=== PATIENT | female | born 1935 | race Caucasian/White ===

== ENCOUNTER → 2016-08-14 | Outpatient (REF) | payer OTHER ==
[2016-08-14 18:12] LABS: ALBUMIN 3.8 GM/DL (3.2-5.2); ALBUMIN/GLOBULIN RATIO 0.97 (1.00-1.93); ALKALINE PHOSPHATASE 93 U/L (45-117); ALT/SGPT 10 U/L (12-78); ANION GAP 9 MEQ/L (8-16); AST/SGOT 7 U/L (15-37); BILIRUBIN,TOTAL 0.3 MG/DL (0.2-1.0); BLOOD UREA NITROGEN 9 MG/DL (7-18); CARBON DIOXIDE LEVEL 29 MEQ/L (21-32); CHLORIDE LEVEL 101 MEQ/L (98-107); CREATININE FOR GFR 0.83 MG/DL (0.55-1.02); GLOMERULAR FILTRATION RATE > 60.0 (>39); GLUCOSE, FASTING 113 MG/DL (83-110); SODIUM LEVEL 139 MEQ/L (136-145); TOTAL PROTEIN 7.7 GM/DL (6.4-8.2)
== END ==
LOC: M SFHCCLAY 10:26
PROVIDERS: ATTEND Family Medicine
DX: I11.9 Hypertensive heart disease without heart failure (principal)
CPT/HCPCS: 36415; 80053; G0463

== ENCOUNTER → 2017-08-20 | Outpatient (REF) | payer OTHER ==
[2017-08-20 17:25] LABS: ALBUMIN 3.9 GM/DL (3.2-5.2); ALKALINE PHOSPHATASE 84 U/L (45-117); ALT/SGPT 13 U/L (12-78); ANION GAP 5 MEQ/L (8-16); AST/SGOT 13 U/L (7-37); BILIRUBIN,TOTAL 0.5 MG/DL (0.2-1.0); BLOOD UREA NITROGEN 10 MG/DL (7-18); CALCIUM LEVEL 9.4 MG/DL (8.8-10.2); CARBON DIOXIDE LEVEL 31 MEQ/L (21-32); CHLORIDE LEVEL 102 MEQ/L (98-107); GLOMERULAR FILTRATION RATE > 60.0 (>32); GLUCOSE, FASTING 97 MG/DL (70-100); POTASSIUM SERUM 4.3 MEQ/L (3.5-5.1); SODIUM LEVEL 138 MEQ/L (136-145); TOTAL PROTEIN 7.8 GM/DL (6.4-8.2)
== END ==
LOC: M SFHCCLAY 11:12
DX: I11.9 Hypertensive heart disease without heart failure (principal)
CPT/HCPCS: 80053

== ENCOUNTER → 2018-12-25 | Outpatient (REF) | payer MEDICARE ==
[2018-12-25 18:27] LABS: ALBUMIN 3.8 GM/DL (3.2-5.2); ALT/SGPT 14 U/L (12-78); BILIRUBIN,TOTAL 0.5 MG/DL (0.2-1.0); BLOOD UREA NITROGEN 9 MG/DL (7-18); CARBON DIOXIDE LEVEL 27 MEQ/L (21-32); CHLORIDE LEVEL 104 MEQ/L (98-107); CREATININE FOR GFR 0.76 MG/DL (0.55-1.30); GLOMERULAR FILTRATION RATE > 60.0 (>32); GLUCOSE, FASTING 95 MG/DL (70-100); POTASSIUM SERUM 3.9 MEQ/L (3.5-5.1); SODIUM LEVEL 139 MEQ/L (136-145); TOTAL PROTEIN 7.8 GM/DL (6.4-8.2)
== END ==
LOC: M SFHCCLAY 09:44
PROVIDERS: ATTEND Family Medicine
DX: I11.9 Hypertensive heart disease without heart failure (principal)

== ENCOUNTER → 2020-08-14 | Outpatient (REF) | payer MEDICARE ==
[2020-08-14 11:21] LABS: BASO # 0.1 10^3/uL (0.0-0.2); BASO % 1.6 % (0.0-1.0); EOS # 0.3 10^3/uL (0.0-0.5); EOS % 3.4 % (0.0-3.0); HEMATOCRIT 42.7 % (36.0-47.0); LYMPH # 2.2 10^3/uL (1.5-5.0); LYMPH % 29.5 % (24.0-44.0); MEAN CORPUSCULAR HEMOGLOBIN 24.8 pg (27.0-33.0); MEAN CORPUSCULAR HGB CONC 30.4 g/dl (32.0-36.5); MEAN CORPUSCULAR VOLUME 81.3 fl (80.0-96.0); MONO # 0.6 10^3/uL (0.0-0.8); MONO % 8.2 % (2.0-8.0); NEUTROPHILS # 4.2 10^3/uL (1.5-8.5); PLATELET COUNT, AUTOMATED 276 10^3/uL (150-450); RED BLOOD COUNT 5.25 10^6/uL (4.00-5.40); WHITE BLOOD COUNT 7.4 10^3/uL (4.0-10.0)
[2020-08-14 12:17] LABS: ALT/SGPT 12 U/L (12-78); BILIRUBIN,TOTAL 0.4 MG/DL (0.2-1.0); BLOOD UREA NITROGEN 16 MG/DL (7-18); CALCIUM LEVEL 9.6 MG/DL (8.8-10.2); CARBON DIOXIDE LEVEL 32 MEQ/L (21-32); CHLORIDE LEVEL 102 MEQ/L (98-107); CHOLESTEROL LEVEL 210 MG/DL (<200); CREATININE FOR GFR 0.85 MG/DL (0.55-1.30); FERRITIN 104 NG/ML (8-252); FREE T4 1.23 NG/DL (0.76-1.46); GLOMERULAR FILTRATION RATE > 60.0 (>32); GLUCOSE, FASTING 112 MG/DL (70-100); HDL CHOLESTEROL 75 MG/DL (>40); IRON (FE) 31 UG/DL (50-170); LDL CHOLESTEROL 120 MG/DL (<100); NON-HDL-C 135 MG/DL; NT-PRO BNP 1898 PG/ML (<450); PERCENT SATURATION 9.4 % (13.2-45.0); POTASSIUM SERUM 4.4 MEQ/L (3.5-5.1); SODIUM LEVEL 138 MEQ/L (136-145); TOTAL 25(OH) VITAMIN D 18.4 NG/ML (30.0-100.0); TOTAL IRON BINDING CAPACITY 329 UG/DL (250-450); TRIGLYCERIDES LEVEL 75 MG/DL (<150)
== END ==
LOC: M SFHCCLAY 07:56
PROVIDERS: ATTEND Physician Assistant
DX: I11.9 Hypertensive heart disease without heart failure (principal); R63.4 Abnormal weight loss; R06.02 Shortness of breath; M40.204 Unspecified kyphosis, thoracic region

== ENCOUNTER → 2020-08-14 | Outpatient (CLI) | payer MEDICARE ==
--- NOTE | 2020-08-14 08:56 | REP ---
INDICATION: R63.4 WEIGHT LOSS R06.02, SOB ON EXERTION COMPARISON: 04/30/2011 TECHNIQUE: PA and lateral. FINDINGS: The mediastinum now demonstrates a large retrocardiac opacity and lateral view suggest the possibility of descending thoracic aortic aneurysm for which further investigation is recommended. The bilateral lung bates demonstrate chronic interstitial changes. No consolidation or effusion. No pneumothorax. Skeletal structures intact. IMPRESSION: Area of opacity in the retrocardiac region highly suspicious for aortic aneurysm bilateral radiograph. Pre and postcontrast CT of the chest and abdomen should be considered for further investigation. <Electronically signed by Ponce Beth > 08/14/20 [id number]
== END ==
LOC: M CLY 08:31
PROVIDERS: ATTEND Physician Assistant
DX: R63.4 Abnormal weight loss (principal); R06.02 Shortness of breath; I11.9 Hypertensive heart disease without heart failure; M40.204 Unspecified kyphosis, thoracic region; Z79.899 Other long term (current) drug therapy

== ENCOUNTER → 2020-08-17 | Outpatient (CLI) | payer MEDICARE ==
[~2020-08-17] MED LIST: ISOVUE-370 76% 100ML VIAL As Ordered ONE
--- NOTE | 2020-08-17 10:39 | REP ---
INDICATION: ABNORMAL CHEST XRAY, SOB, WEIGHT LOSS COMPARISON: None TECHNIQUE: Axial contrast enhanced images from the thoracic inlet to the upper abdomen with coronal and sagittal reformations using 75 ml Isovue 370 intravenous contrast material. This CT examination was performed using the following dose reduction techniques: Automated exposure control, adjustment of mA and/or kv according to the patient's size, and use of iterative reconstruction technique. FINDINGS: There is a large partially thrombosed aneurysm involving the descending thoracic aorta extending essentially to the suprarenal upper abdominal aorta through the hiatus and measuring approximately 5.8 cm maximal true diameter within adjacent patent luminal diameter measuring up to 3.8 cm diameter. There is no obvious acute leak. The ascending thoracic aorta at the level just above the root measures 3.5 cm true maximal diameter as well but without associated surrounding mural thrombus. Mild cardiomegaly. No pericardial effusion. 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 No significant mediastinal, hilar or axillary adenopathy noted. The bilateral lung bates demonstrate moderate chronic emphysematous changes along with chronic passive left lower lobe atelectasis adjacent to the above-mentioned aneurysm. No pleural effusion. Musculoskeletal structures demonstrate age-related degenerative changes. Limited upper abdomen demonstrates normal bilateral adrenal glands. IMPRESSION: 1. 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 2. 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 3. Chronic emphysematous disease. <Electronically signed by Ponce Beth > 08/17/20 [id number]
== END ==
LOC: M RAD 09:47
PROVIDERS: ATTEND Physician Assistant
DX: I71.2 Thoracic aortic aneurysm, without rupture (principal); R93.89 Abnormal findings on diagnostic imaging of other specified body structures; R06.02 Shortness of breath; R63.4 Abnormal weight loss; F17.210 Nicotine dependence, cigarettes, uncomplicated
CPT/HCPCS: 71260; Q9967

== ENCOUNTER → 2020-09-29 | Outpatient (CLI) | payer MEDICARE ==
--- NOTE | 2020-09-29 11:15 | REP ---
INDICATION: HTN COMPARISON: None TECHNIQUE: Real time marcus scale ultrasound examination using curved array transducer followed by color Doppler evaluation of the renal vasculature. FINDINGS: The bilateral kidneys are normal in contour, size, echogenicity and reniform shape without hydronephrosis. Right kidney measures 9.7 x 3.7 x 3.3 cm. Left kidney measures 10.4 x 4.0 x 3.6 cm. Color Doppler evaluation Peak aortic velocity: 30 centimeters/second RIGHT KIDNEY Renal arterial velocity: 156 centimeters/second Renal-aortic ratio: 5:1 Intrarenal resistive indices: 0.60-0.62 Intrarenal acceleration times: 0.075-0.083 LEFT KIDNEY Renal arterial velocity: 125 centimeters/second Renal-aortic ratio: 4:1 Intrarenal resistive indices: 0.58-0.63 Intrarenal acceleration times: 0.067-0.083 IMPRESSION: 1. Kidneys appear normal. 2. Patient has a known abdominal aortic aneurysm involving the bilateral renal arteries which may contribute to the abnormal ratios and acceleration times although associated bilateral renal arterial stenosis cannot be excluded. <Electronically signed by Ponce Beth > 09/29/20 [id number]
== END ==
LOC: M RAD 09:31
PROVIDERS: ATTEND Internal Medicine Cardiovascular Disease
DX: I71.4 Abdominal aortic aneurysm, without rupture (principal); I10 Essential (primary) hypertension

== ENCOUNTER → 2020-10-20 | Outpatient (CLI) | payer MEDICARE ==
[2020-10-20 12:11] LABS: BLOOD UREA NITROGEN 13 MG/DL (7-18); CALCIUM LEVEL 9.8 MG/DL (8.8-10.2); CARBON DIOXIDE LEVEL 31 MEQ/L (21-32); CHLORIDE LEVEL 101 MEQ/L (98-107); CREATININE FOR GFR 0.81 MG/DL (0.55-1.30); GLOMERULAR FILTRATION RATE > 60.0 (>32); GLUCOSE, FASTING 86 MG/DL (70-100); POTASSIUM SERUM 4.3 MEQ/L (3.5-5.1); SODIUM LEVEL 137 MEQ/L (136-145)
[2020-10-20 12:39] LABS: CREATININE, URINE 89.3 MG/DL; MAU/CREAT RATIO 631.5 MCG/MG (0.0-30.0)
== END ==
LOC: M LAB 10:57
PROVIDERS: ATTEND Internal Medicine Cardiovascular Disease
DX: I10 Essential (primary) hypertension (principal)

== ENCOUNTER → 2020-11-02 | Outpatient (CLI) | payer MEDICARE ==
--- NOTE | 2020-11-02 09:08 | REPVR ---
PROCEDURE INFORMATION: Exam: CT Angiography Abdomen With Contrast Exam date and time: 11/02/2020 8:12 AM Age: 85 years old Clinical indication: Condition or disease; Arterial aneurysm; Without rupture; Abdominal; Additional info: Aaa TECHNIQUE: Imaging protocol: Computed tomographic angiography images of the abdomen with intravenous contrast material. 3D rendering (Not supervised by radiologist): MIP and/or 3D reconstructed images were created by the technologist. Radiation optimization: All CT scans at this facility use at least one of these dose optimization techniques: automated exposure control; mA and/or kV adjustment per patient size (includes targeted exams where dose is matched to clinical indication); or iterative reconstruction. Contrast material: ISOVUE 370; Contrast volume: 100 ml; Contrast route: INTRAVENOUS (IV); COMPARISON: RENAL US 09/29/2020 9:53 AM FINDINGS: Lungs: Atelectasis or scarring at the left base. Heart: Cardiomegaly. Aorta: Stable partially visualized aneurysm of the distal descending thoracic aorta measuring up to 6 cm in diameter. Severe atherosclerotic disease of the abdominal aorta. Aneurysmal dilatation of the infrarenal aorta measuring up to 2.9 cm. 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 Renal arteries: Severe stenosis involving right renal artery. Liver: Hepatomegaly. Gallbladder and bile ducts: Cholelithiasis. Pancreas: Normal. No ductal dilation. Spleen: Normal. No splenomegaly. Adrenals: Bilateral adrenal hyperplasia. Kidneys and ureters: Right renal cortical atrophy. Stomach and bowel: Unremarkable. No obstruction. No mucosal thickening. Lymph nodes: Unremarkable. No enlarged lymph nodes. Intraperitoneal space: Unremarkable. No free air. No significant fluid collection. Bones/joints: Suggestion of mild pectus excavatum. Multilevel degenerative disease and facet of the spine. Soft tissues: Unremarkable. IMPRESSION: Stable partially visualized aneurysm of the distal descending thoracic aorta measuring up to 6 cm in diameter. Severe atherosclerotic disease of the abdominal aorta. Aneurysmal dilatation of the infrarenal aorta measuring up to 2.9 cm. Cholelithiasis. No specific evidence of acute cholecystitis. Electronically signed by: Christiano Bauman On 11/02/2020 09:07:36 AM
== END ==
LOC: M RAD 07:41
PROVIDERS: ATTEND Internal Medicine Cardiovascular Disease
DX: I71.2 Thoracic aortic aneurysm, without rupture (principal); K80.20 Calculus of gallbladder without cholecystitis without obstruction; I10 Essential (primary) hypertension
CPT/HCPCS: 74175; Q9967

== ENCOUNTER → 2021-02-01 | Outpatient (REF) | payer MEDICARE ==
[2021-02-01 16:31] LABS: BASO # 0.1 10^3/uL (0.0-0.2); BASO % 1.5 % (0.0-1.0); EOS # 0.3 10^3/uL (0.0-0.5); EOS % 4.7 % (0.0-3.0); HEMATOCRIT 42.7 % (36.0-47.0); HEMOGLOBIN 13.4 g/dl (12.0-15.5); LYMPH # 1.9 10^3/uL (1.5-5.0); MEAN CORPUSCULAR HEMOGLOBIN 26.4 pg (27.0-33.0); MEAN CORPUSCULAR HGB CONC 31.4 g/dl (32.0-36.5); MEAN CORPUSCULAR VOLUME 84.2 fl (80.0-96.0); MONO # 0.7 10^3/uL (0.0-0.8); MONO % 9.8 % (2.0-8.0); NEUTROPHILS # 3.8 10^3/uL (1.5-8.5); NEUTROPHILS % 55.4 % (36.0-66.0); PLATELET COUNT, AUTOMATED 251 10^3/uL (150-450); RED BLOOD COUNT 5.07 10^6/uL (4.00-5.40); WHITE BLOOD COUNT 6.9 10^3/uL (4.0-10.0)
[2021-02-01 17:14] LABS: ALBUMIN 3.5 GM/DL (3.2-5.2); ALT/SGPT 19 U/L (12-78); BILIRUBIN,TOTAL 0.5 MG/DL (0.2-1.0); BLOOD UREA NITROGEN 13 MG/DL (7-18); CALCIUM LEVEL 9.7 MG/DL (8.8-10.2); CARBON DIOXIDE LEVEL 28 MEQ/L (21-32); CHLORIDE LEVEL 106 MEQ/L (98-107); CHOLESTEROL LEVEL 232 MG/DL (<200); CHOLESTEROL RISK RATIO 3.803 (<5); CREATININE FOR GFR 0.72 MG/DL (0.55-1.30); GLOMERULAR FILTRATION RATE > 60.0 (>32); GLUCOSE, FASTING 103 MG/DL (70-100); HDL CHOLESTEROL 61 MG/DL (>40); IRON (FE) 47 UG/DL (50-170); LDL CHOLESTEROL 153 MG/DL (<100); NON-HDL-C 171 MG/DL; SODIUM LEVEL 139 MEQ/L (136-145); TOTAL PROTEIN 7.7 GM/DL (6.4-8.2); TRIGLYCERIDES LEVEL 92 MG/DL (<150)
[2021-02-01 17:32] LABS: PERCENT SATURATION 16.2 % (13.2-45.0); TOTAL IRON BINDING CAPACITY 290 UG/DL (250-450)
[2021-02-01 17:43] LABS: TOTAL 25(OH) VITAMIN D 36.3 NG/ML (30.0-100.0)
== END ==
LOC: M SFHCCLAY 10:03
PROVIDERS: ATTEND Physician Assistant
DX: D50.9 Iron deficiency anemia, unspecified (principal); E55.9 Vitamin D deficiency, unspecified; Z79.899 Other long term (current) drug therapy

== ENCOUNTER → 2021-03-16 | Outpatient (CLI) | payer MEDICARE ==
--- NOTE | 2021-03-16 15:17 | REP ---
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 COMPARISON: Comparison is made with renal Doppler assessment the data from September 29, 2020. TECHNIQUE: 8.8 mCi of Technetium-99m MAG3 is injected and sequential posterior flow and excretory phase imaging are acquired. Renal cortical regions of interest are drawn and time activity curves are plotted for renal functional analysis. Pre and postvoid images including the kidneys and bladder were acquired. FINDINGS: Posterior flow study shows symmetric perfusion of the kidneys bilaterally. Symmetrical function and symmetric appearance of the collecting systems is observed bilaterally, 3 minutes. Differential function analysis is asymmetric with 50.0 % of overall renal cortical counts coming from the left kidney and 50.0 % coming from the right. Time to peak activity is normal at 2.0 minutes bilaterally. Time to half max activity is normal bilaterally measured at 13.0 minutes on the left and 16.2 minutes on the right. Pre and postvoid images are unremarkable. There is good bladder emptying. Mild fullness of the intrarenal collecting systems is present bilaterally but no evidence of obstructive uropathy. Good washout. IMPRESSION: Essentially normal nuclear renal scintigraphy. <Electronically signed by Abelardo Calvert > 03/16/21 [id number]
== END ==
LOC: M RAD 12:48
PROVIDERS: ATTEND Internal Medicine Nephrology
DX: I70.1 Atherosclerosis of renal artery (principal); I15.0 Renovascular hypertension
CPT/HCPCS: 78707; A9562

== ENCOUNTER → 2021-06-04 | Outpatient (CLI) | payer MEDICARE | LOC: M RAD 10:33 | PROVIDERS: ATTEND Surgery Vascular Surgery | DX: I71.4 Abdominal aortic aneurysm, without rupture (principal); R91.8 Other nonspecific abnormal finding of lung field ==

== ENCOUNTER → 2021-07-18 | Outpatient (REF) | payer MEDICARE | LOC: M LAB REF 13:16 | PROVIDERS: ATTEND Internal Medicine Nephrology | DX: N39.0 Urinary tract infection, site not specified (principal) ==

== ENCOUNTER → 2021-10-16 | Outpatient (REF) | payer MEDICARE | LOC: M LAB REF 16:42 | PROVIDERS: ATTEND Internal Medicine Nephrology | DX: N39.0 Urinary tract infection, site not specified (principal) ==

== ENCOUNTER 2021-12-28 17:11 | Inpatient (IN) | payer MEDICARE ==
[~2021-12-28] VITALS: Ht 160 cm; Wt 41.8 kg
[2021-12-28 19:26] LABS: BASO # 0.1 10^3/uL (0.0-0.2); BASO % 0.8 % (0.0-1.0); EOS # 0.1 10^3/uL (0.0-0.5); EOS % 0.6 % (0.0-3.0); HEMOGLOBIN 12.8 g/dl (12.0-15.5); LYMPH # 1.1 10^3/uL (1.5-5.0); LYMPH % 7.6 % (24.0-44.0); MEAN CORPUSCULAR HEMOGLOBIN 29.2 pg (27.0-33.0); MEAN CORPUSCULAR HGB CONC 33.7 g/dl (32.0-36.5); MEAN CORPUSCULAR VOLUME 86.8 fl (80.0-96.0); MONO # 0.9 10^3/uL (0.0-0.8); MONO % 6.4 % (2.0-8.0); NEUTROPHILS # 11.8 10^3/uL (1.5-8.5); NEUTROPHILS % 83.3 % (36.0-66.0); PLATELET COUNT, AUTOMATED 366 10^3/uL (150-450); RED BLOOD COUNT 4.38 10^6/uL (4.00-5.40); WHITE BLOOD COUNT 14.1 10^3/uL (4.0-10.0)
[2021-12-28 19:36] LABS: INR 1.98
[2021-12-28 19:37] LABS: PARTIAL THROMBOPLASTIN TIME 42.5 SECONDS (25.9-37.0)
[2021-12-28 19:58] LABS: ALBUMIN 2.6 GM/DL (3.2-5.2); ALT/SGPT 126 U/L (12-78); BILIRUBIN,DIRECT 21.5 MG/DL (0.0-0.2); BILIRUBIN,TOTAL 25.4 MG/DL (0.2-1.0); BLOOD UREA NITROGEN 7 MG/DL (7-18); CALCIUM LEVEL 9.5 MG/DL (8.8-10.2); CARBON DIOXIDE LEVEL 23 MEQ/L (21-32); CHLORIDE LEVEL 96 MEQ/L (98-107); CREATININE FOR GFR 0.69 MG/DL (0.55-1.30); GLOMERULAR FILTRATION RATE > 60.0 (>32); GLUCOSE, FASTING 109 MG/DL (70-100); LIPASE 186 U/L (73-393); POTASSIUM SERUM 3.5 MEQ/L (3.5-5.1); SODIUM LEVEL 132 MEQ/L (136-145); TOTAL PROTEIN 6.5 GM/DL (6.4-8.2)
[2021-12-28] MEDS ORDERED: ISOVUE-370 76% 100ML VIAL As Ordered ONE (20:13)
[2021-12-28] MEDS ORDERED: CARV3.12 PO (22:19)
[2021-12-28] MEDS ORDERED: HYDR10TAB PO (22:19)
[2021-12-28] MEDS ORDERED: AMLO1TAB24 PO (22:19)
[2021-12-28] MEDS ORDERED: VITA200016 PO (22:19)
[2021-12-28] MEDS ORDERED: CITA20TA7 PO (22:19)
[2021-12-28] MEDS ORDERED: BENA40TA84 PO (22:19)
[2021-12-28] MEDS ORDERED: MAALOX 30 ML SUSP *UDC PO PRN (22:55)
[2021-12-28] MEDS ORDERED: ACETAMINOPHEN TAB 650MG DOSE (2X325MG) PO PRN (22:55)
[2021-12-28] MEDS ORDERED: MOM 30ML SUSPENSION UDC PO PRN (22:55)
[2021-12-28 23:02] LABS: RSV AMPLIFICATION NEGATIVE (NEGATIVE)
[2021-12-28] MEDS ORDERED: HOME MED LIST COMPLETE! XX SCH (23:30)
[2021-12-29 00:10] VITALS: BP 167/83
[2021-12-29] MEDS: NS 1,000 ML IV SCH ×2 (02:56→15:55)
[2021-12-29 05:40] VITALS: BP 174/85
[2021-12-29 07:50] LABS: BASO # 0.1 10^3/uL (0.0-0.2); BASO % 0.8 % (0.0-1.0); EOS # 0.1 10^3/uL (0.0-0.5); EOS % 1.2 % (0.0-3.0); HEMATOCRIT 32.8 % (36.0-47.0); HEMOGLOBIN 11.4 g/dl (12.0-15.5); LYMPH % 10.3 % (24.0-44.0); MEAN CORPUSCULAR HEMOGLOBIN 29.2 pg (27.0-33.0); MEAN CORPUSCULAR HGB CONC 34.8 g/dl (32.0-36.5); MEAN CORPUSCULAR VOLUME 84.1 fl (80.0-96.0); MONO # 0.7 10^3/uL (0.0-0.8); MONO % 6.9 % (2.0-8.0); NEUTROPHILS # 7.8 10^3/uL (1.5-8.5); NEUTROPHILS % 79.2 % (36.0-66.0); PLATELET COUNT, AUTOMATED 326 10^3/uL (150-450); WHITE BLOOD COUNT 9.9 10^3/uL (4.0-10.0)
[2021-12-29 08:34] LABS: ALBUMIN 2.2 GM/DL (3.2-5.2); ALT/SGPT 104 U/L (12-78); BILIRUBIN,TOTAL 23.1 MG/DL (0.2-1.0); BLOOD UREA NITROGEN 7 MG/DL (7-18); CALCIUM LEVEL 8.9 MG/DL (8.8-10.2); CARBON DIOXIDE LEVEL 24 MEQ/L (21-32); CHLORIDE LEVEL 101 MEQ/L (98-107); CREATININE FOR GFR 0.52 MG/DL (0.55-1.30); GLOMERULAR FILTRATION RATE > 60.0 (>32); GLUCOSE, FASTING 84 MG/DL (70-100); MAGNESIUM LEVEL 1.5 MG/DL (1.8-2.4); POTASSIUM SERUM 2.6 MEQ/L (3.5-5.1); SODIUM LEVEL 136 MEQ/L (136-145); TOTAL PROTEIN 5.5 GM/DL (6.4-8.2)
[2021-12-29] MEDS: BENAZEPRIL 20 MG TAB PO SCH (08:45)
[2021-12-29] MEDS: CitaloPRAM (CeleXA) 20 MG TAB PO SCH (08:45)
[2021-12-29] MEDS: CARVedilol 3.125 MG TAB PO SCH ×2 (08:45→20:25)
[2021-12-29] MEDS: **hydrALAZINE** 10 MG TAB PO SCH ×2 (08:46→20:24)
[2021-12-29] MEDS: amLODIPine 5 MG TAB PO SCH (08:48)
[2021-12-29] MEDS ORDERED: KCL 10MEQ/100ML SWI (KRUN) 10 MEQ in IV 1 EA IV STA (10:18)
[2021-12-29] MEDS: KCL 10MEQ/100ML SWI (KRUN) 10 MEQ in IV 1 EA IV SCH ×6 (11:30→19:22)
[2021-12-29] MEDS ORDERED: POTASSIUM CHLORIDE 10MEQ SR TABLET PO ONE ×2 (14:00→20:00)
[2021-12-29] MEDS: PIPERACILLIN/TAZOBACTAM SOD 3.375 GM in D5W MINI-BAG PLUS 50 ML IV SCH ×2 (14:11→20:21)
[2021-12-29 14:23] VITALS: BP 161/85
[2021-12-29] MEDS ORDERED: PROHANCE 279.3MG/ML 15ML VIAL As Ordered ONE (16:30)
[2021-12-29 19:48] LABS: BLOOD UREA NITROGEN 10 MG/DL (7-18); CALCIUM LEVEL 8.7 MG/DL (8.8-10.2); CARBON DIOXIDE LEVEL 24 MEQ/L (21-32); CHLORIDE LEVEL 103 MEQ/L (98-107); CREATININE FOR GFR 0.65 MG/DL (0.55-1.30); GLOMERULAR FILTRATION RATE > 60.0 (>32); GLUCOSE, FASTING 105 MG/DL (70-100); POTASSIUM SERUM 4.2 MEQ/L (3.5-5.1); SODIUM LEVEL 135 MEQ/L (136-145)
[2021-12-29] MEDS: HEPARIN SOD (PORCINE) 5000UNITS/ML 1ML VIAL/SYRINGE SQ SCH (20:21)
[2021-12-29 21:43] VITALS: BP 160/94
[2021-12-30] VITALS (8 sets, daily range): BP systolic 116–137; BP diastolic 70–86
[2021-12-30] MEDS: PIPERACILLIN/TAZOBACTAM SOD 3.375 GM in D5W MINI-BAG PLUS 50 ML IV SCH ×4 (01:46→20:03)
[2021-12-30] MEDS: ONDANSETRON 4MG 2ML VIAL IV PRN (06:26)
[2021-12-30 06:37] LABS: HEMATOCRIT 32.9 % (36.0-47.0); HEMOGLOBIN 11.4 g/dl (12.0-15.5); MEAN CORPUSCULAR HEMOGLOBIN 29.3 pg (27.0-33.0); MEAN CORPUSCULAR HGB CONC 34.7 g/dl (32.0-36.5); MEAN CORPUSCULAR VOLUME 84.6 fl (80.0-96.0); PLATELET COUNT, AUTOMATED 322 10^3/uL (150-450); RED BLOOD COUNT 3.89 10^6/uL (4.00-5.40); WHITE BLOOD COUNT 12.5 10^3/uL (4.0-10.0)
[2021-12-30 07:27] LABS: ALBUMIN 2.1 GM/DL (3.2-5.2); ALT/SGPT 97 U/L (12-78); BILIRUBIN,DIRECT 20.1 MG/DL (0.0-0.2); BILIRUBIN,TOTAL 24.3 MG/DL (0.2-1.0); BLOOD UREA NITROGEN 10 MG/DL (7-18); CARBON DIOXIDE LEVEL 20 MEQ/L (21-32); CHLORIDE LEVEL 104 MEQ/L (98-107); CREATININE FOR GFR 0.58 MG/DL (0.55-1.30); GLOMERULAR FILTRATION RATE > 60.0 (>32); GLUCOSE, FASTING 109 MG/DL (70-100); POTASSIUM SERUM 3.9 MEQ/L (3.5-5.1); SODIUM LEVEL 135 MEQ/L (136-145); TOTAL PROTEIN 5.6 GM/DL (6.4-8.2)
[2021-12-30] MEDS ORDERED: ISOVUE-300 61% 50ML VIAL As Ordered ONE (07:56)
[2021-12-30] MEDS ORDERED: LIDOCAINE 2% 100MG/5ML SDV (FOR ANES.) As Ordered ONE (08:08)
[2021-12-30] MEDS ORDERED: dexameTHASONE 4 MG/ML 1ML VIAL (J1100 PER 1MG) As Ordered ONE (08:08)
[2021-12-30] MEDS ORDERED: ONDANSETRON 4MG 2ML VIAL As Ordered ONE (08:08)
[2021-12-30] MEDS ORDERED: propofoL 200 MG/20 ML VIAL As Ordered ONE (08:08)
[2021-12-30] MEDS ORDERED: ROCURONIUM BROMIDE 50 MG/5 ML VIAL As Ordered ONE (08:08)
[2021-12-30] MEDS ORDERED: SUGAMMADEX SODIUM 500 MG/5 ML VIAL (BRIDION) As Ordered ONE (08:08)
[2021-12-30] MEDS ORDERED: fentaNYL 100 MCG/2 ML INJECTION As Ordered ONE (08:08)
[2021-12-30] MEDS ORDERED: ZOSYN 3.375GM VIAL As Ordered ONE (08:29)
[2021-12-30] MEDS ORDERED: PHENYLephrine 500MCG 5ML (100MCG/ML) SYRINGE As Ordered ONE (08:34)
[2021-12-30] MEDS ORDERED: ENOXAPARIN 40MG/0.4ML SYRINGE (J1650 PER 10MG) SC SCH (09:00)
[2021-12-30] MEDS ORDERED: LR 1,000 ML IV SCH (09:10)
[2021-12-30] MEDS ORDERED: fentaNYL 100 MCG/2 ML INJECTION IV PRN (09:10)
[2021-12-30] MEDS ORDERED: NORCO, ANEXSIA 5/325MG TABLET (HYDROcodone/ACETAMINOPHEN) PO PRN (09:10)
[2021-12-30] MEDS ORDERED: ONDANSETRON 4MG 2ML VIAL IV PRN (09:10)
[2021-12-30] MEDS: amLODIPine 5 MG TAB PO SCH (10:02)
[2021-12-30] MEDS: BENAZEPRIL 20 MG TAB PO SCH (10:02)
[2021-12-30] MEDS: **hydrALAZINE** 10 MG TAB PO SCH ×2 (10:03→20:03)
[2021-12-30] MEDS: CitaloPRAM (CeleXA) 20 MG TAB PO SCH (10:03)
[2021-12-30] MEDS: CARVedilol 3.125 MG TAB PO SCH ×2 (10:03→20:03)
[2021-12-30] MEDS: HEPARIN SOD (PORCINE) 5000UNITS/ML 1ML VIAL/SYRINGE SQ SCH ×2 (10:04→20:04)
[2021-12-31] MEDS: PIPERACILLIN/TAZOBACTAM SOD 3.375 GM in D5W MINI-BAG PLUS 50 ML IV SCH ×2 (01:29→09:09)
[2021-12-31 02:00] VITALS: BP 129/74
[2021-12-31] MEDS: ONDANSETRON 4MG 2ML VIAL IV PRN (05:20)
[2021-12-31 06:00] VITALS: BP 148/83
[2021-12-31 06:47] LABS: HEMATOCRIT 32.7 % (36.0-47.0); MEAN CORPUSCULAR HEMOGLOBIN 29.5 pg (27.0-33.0); MEAN CORPUSCULAR HGB CONC 33.6 g/dl (32.0-36.5); MEAN CORPUSCULAR VOLUME 87.7 fl (80.0-96.0); PLATELET COUNT, AUTOMATED 321 10^3/uL (150-450); RED BLOOD COUNT 3.73 10^6/uL (4.00-5.40); WHITE BLOOD COUNT 10.3 10^3/uL (4.0-10.0)
[2021-12-31 07:11] LABS: ALBUMIN 1.9 GM/DL (3.2-5.2); ALT/SGPT 79 U/L (12-78); BILIRUBIN,DIRECT 10.3 MG/DL (0.0-0.2); BLOOD UREA NITROGEN 13 MG/DL (7-18); CALCIUM LEVEL 8.7 MG/DL (8.8-10.2); CARBON DIOXIDE LEVEL 22 MEQ/L (21-32); CHLORIDE LEVEL 104 MEQ/L (98-107); CREATININE FOR GFR 0.72 MG/DL (0.55-1.30); GLOMERULAR FILTRATION RATE > 60.0 (>32); GLUCOSE, FASTING 130 MG/DL (70-100); SODIUM LEVEL 133 MEQ/L (136-145); TOTAL PROTEIN 5.9 GM/DL (6.4-8.2)
[2021-12-31] MEDS: CARVedilol 3.125 MG TAB PO SCH (09:11)
[2021-12-31] MEDS: amLODIPine 5 MG TAB PO SCH (09:11)
[2021-12-31 09:12] VITALS: BP 130/80
[2021-12-31] MEDS: CitaloPRAM (CeleXA) 20 MG TAB PO SCH (09:12)
[2021-12-31] MEDS: HEPARIN SOD (PORCINE) 5000UNITS/ML 1ML VIAL/SYRINGE SQ SCH (09:12)
[2021-12-31] MEDS: **hydrALAZINE** 10 MG TAB PO SCH (09:12)
[2021-12-31] MEDS: BENAZEPRIL 20 MG TAB PO SCH (09:12)
[2021-12-31] MEDS ORDERED: PRED20TA PO (11:20)
[2021-12-31] MEDS ORDERED: ALBU2.5V10 INH (11:20)
[2021-12-31] MEDS ORDERED: AMOX875T2 PO (11:20)
== END 2021-12-31 12:45 | disposition home health service (06) | DRG 445 ==
LOC: M ED 17:11 → M ED INP 22:53 → M MS5PR 23:59
PROVIDERS: ADMIT Family Medicine; ATTEND Student in an Organized Health Care Education/Training Program
PROC: 0FB98ZX Excision of Common Bile Duct, Via Natural or Artificial Opening Endoscopic, Diagnostic (ICD-10-PCS; 2021-12-30)
PROC: 0F798DZ Dilation of Common Bile Duct with Intraluminal Device, Via Natural or Artificial Opening Endoscopic (ICD-10-PCS; 2021-12-30)
PROC: 0FC98ZZ Extirpation of Matter from Common Bile Duct, Via Natural or Artificial Opening Endoscopic (ICD-10-PCS; principal; 2021-12-30 10:07)
DX: K83.1 Obstruction of bile duct (principal); K86.2 Cyst of pancreas; R17 Unspecified jaundice; C25.2 Malignant neoplasm of tail of pancreas; J44.9 Chronic obstructive pulmonary disease, unspecified; E78.5 Hyperlipidemia, unspecified; R74.8 Abnormal levels of other serum enzymes; I71.2 Thoracic aortic aneurysm, without rupture; E80.6 Other disorders of bilirubin metabolism; K80.20 Calculus of gallbladder without cholecystitis without obstruction; K59.00 Constipation, unspecified; Z66 Do not resuscitate; E87.6 Hypokalemia; E55.9 Vitamin D deficiency, unspecified; F32.A Depression, unspecified; R63.4 Abnormal weight loss; K83.8 Other specified diseases of biliary tract; Z98.41 Cataract extraction status, right eye; Z98.42 Cataract extraction status, left eye; Z79.899 Other long term (current) drug therapy; Z88.2 Allergy status to sulfonamides; Z88.8 Allergy status to other drugs, medicaments and biological substances